=== PATIENT | female | born 1960 | race Caucasian/White ===

== ENCOUNTER 2016-11-28 19:07 | Emergency (ER) | payer SELFPAY ==
--- NOTE | 2016-11-28 20:49 | RAD ---
THREE VIEWS LEFT ANKLE 11/28/16 HISTORY: Left ankle pain. AP, lateral and oblique views left ankle obtained. Images demonstrate previous surgery seen in the first tarsometatarsal joint. There is some soft tiss ue swelling in the medial and lateral aspect of the left ankle. IMPRESSION: No evidence of acute left ankle abnormality seen. POS: DANNY
--- NOTE | 2016-11-28 21:28 | RAD ---
FOUR VIEWS LEFT KNEE 11/28/16 HISTORY: Swelling and fall one month ago. AP, lateral and both oblique views left knee obtained. No evidence of fractures or bony lesions seen. Osteoarthritic changes seen in the medial compartment left knee. IMPRESSION: No evidence of fractures seen associated with the patient's fall from one month earlier. POS: DANNY
--- NOTE | 2016-11-28 21:30 | RAD ---
THREE VIEWS LEFT FOOT 11/28/16 HISTORY: Fall one month ago with swelling. AP, lateral and oblique view left foot is obtained. Surgical changes seen in the base of the first t arsometatarsal joint. No evidence of acute fractures seen. 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 IMPRESSION: No evidence of acute left foot abnormality seen. POS: DANNY
== END 2016-11-28 20:28 | disposition home or self-care (01) ==
LOC: MADERS 19:07
DX: S83.412A Sprain of medial collateral ligament of left knee, initial encounter (principal); I10 Essential (primary) hypertension; F17.210 Nicotine dependence, cigarettes, uncomplicated; Z79.899 Other long term (current) drug therapy; W22.8XXA Striking against or struck by other objects, initial encounter

== ENCOUNTER 2018-09-02 06:36 | Emergency (ER) | payer SELFPAY ==
[2018-09-02 07:15] LABS: #Basophils 0.1 thou/uL (0.0-0.2); #Eosinphils 0.1 thou/uL (0.0-0.7); #Lymphocytes 1.5 thou/uL (1.20-3.40); #Monocytes 0.6 thou/uL (0.11-0.59); #Neutrophils 5.6 thou/uL (1.40-6.50); %Basophils 1.1 % (0.0-1.0); %Eosinophils 1.3 % (0.0-10.0); %Lymphocytes 18.5 % (21.0-51.0); %Neutrophils 71.1 % (42.0-75.0); Hemoglobin 16.4 g/dL (12.0-16.0); Mean Corpuscular HGB CONC 31.4 g/dL (32.0-36.0); Mean Corpuscular Hemoglobin 29.2 pg (27.0-31.0); Mean Corpuscular Volume 92.9 fL (78.0-98.0); Mean Platelet Volume 9.5 fL (7.4-10.4); Platelet Count 272 thou/uL (130-400); RBC Distribution Width 12.1 % (11.5-14.5); Red Blood Cell (RBC) Count 5.61 mill/uL (4.20-5.40); White Blood Cell (WBC) Count 7.9 thou/uL (4.8-10.8)
[2018-09-02 07:24] LABS: PTT 26.8 SEC (22.9-36.1)
[2018-09-02] MEDS ORDERED: Amlodipine 5 MG TAB ONE (07:30)
[2018-09-02 07:33] LABS: ALT (SGPT) 45 U/L (8-55); AST (SGOT) 30 U/L (5-34); Albumin 4.3 g/dL (3.5-5.0); Alkaline Phosphatase 100 U/L (40-150); Anion Gap 15 mmol/L (10-20); BUN (Urea Nitrogen) 20 mg/dL (9.8-20.1); Bilirubin, Total 0.6 mg/dL (0.2-1.2); CK (CPK) 46 U/L (29-168); Calc. Creatinine Clearance 0 mL/min (70-130); Calcium 9.5 mg/dL (7.8-10.44); Carbon Dioxide 26 mmol/L (22-29); Chloride 105 mmol/L (98-107); Estimated GFR-MDRD 69; Globulin 2.6 g/dL (2.4-3.5); Glucose 110 mg/dL (70-105); Potassium 3.8 mmol/L (3.5-5.1); Protein, Total 6.9 g/dL (6.0-8.3); Sodium 142 mmol/L (136-145)
[2018-09-02 07:36] LABS: CKMB 3.4 ng/mL (0-6.6)
[2018-09-02 07:37] LABS: D-Dimer Test 0.3 *mcg/mL (0.27-0.43)
--- NOTE | 2018-09-02 07:43 | RAD ---
CHEST PA AND LATERAL 2 VIEWS: Date: 09/02/18 HISTORY: 58-year-old female with dyspnea. COMPARISON: 12/16/11. FINDINGS: There is cardiomegaly with bilateral vascular congestion and minimal interstitial edema and bilateral pleural effusions, evidence for some congestive heart failure, new from prior study. Small, stable, old left upper lobe granuloma calcification. IMPRESSION: Cardiomegaly with bilateral vascular congestion, minimal interstitial edema, and pleural effusions, e vidence for congestive heart failure. POS: LEONA
[2018-09-02] MEDS ORDERED: Nitroglycerin 2% Ointment 1 INCH/1 GM Packet ONE (08:04)
[2018-09-02] MEDS ORDERED: Furosemide 40 MG/4 ML VIAL ONE (08:04)
[2018-09-02] MEDS ORDERED: Nitroglycerin 0.4 MG TAB (25 Tab Bottle) ONE (08:04)
== END 2018-09-02 08:45 | disposition home or self-care (01) ==
LOC: MADERS 06:36
DX: I11.0 Hypertensive heart disease with heart failure (principal); I50.9 Heart failure, unspecified; F17.210 Nicotine dependence, cigarettes, uncomplicated; Z79.899 Other long term (current) drug therapy
CPT/HCPCS: 71046; 80053; 82550; 82553; 83880; 84484; 85025; 85379; 85610; 85730; 93005; 94760; 96374; J1940